=== PATIENT | male | born 1935 | race Caucasian/White ===

== ENCOUNTER 2018-11-06 21:18 | Day surgery (SDC) | payer MEDICARE, OTHER ==
[2018-11-06] MEDS ORDERED: Lidocaine 2% 100 MG/5 ML Syringe IVPUSH ONE (21:19)
[2018-11-06] MEDS ORDERED: Propofol 200 MG/20 ML SDV IV ONE (21:19)
[2018-11-06] MEDS ORDERED: Lactated Ringers 1,000 ML IV ONE (21:19)
--- NOTE | 2018-11-06 22:00 | HP ---
ADMISSION DATE: 11/06/2018 HISTORY OF PRESENT ILLNESS: This is an 83-year-old male. He is transferred here from [place] after sustaining a food bolus stuck in his esophagus. The patient states that he was eating supper approximately at 6:30. He ate some salad. This seemed to go down without difficulty. Then, he ate approximately 2 bites of well done ribs and a small onion ring. After that he was unable to swallow and since then he is not able to keep even his saliva down. He feels a generalized discomfort but no sharp pain in the abdomen. He has no respiratory difficulty from this, but despite observing this now for almost 3 hours, the symptoms persist. The patient states that prior to this episode, he has not been having difficulty with heartburn. He denies taking medication for acid reflux and he also states that he has not noticed any difficulty with swallowing, specifically denying any dysphagia or altering his eating at all because of difficulty swallowing. PAST MEDICAL HISTORY: Does include diagnosis of coronary artery disease. He has had an [place] during the 1970s. He has had 2 coronary artery bypass surgeries, the last one being approximately year 1999. He has been diagnosed with atrial fibrillation, but his only anticoagulant at this time is low-dose aspirin. He also is reported to carry a diagnosis of COPD. Generally, he says that he has felt well. He does remain physically active, able to do activities such as mowing the lawn without any unusual shortness of breath. He does, however. report that approximately 6 weeks ago, he was diagnosed with pneumonia and required antibiotics for this. ALLERGIES: He is allergic to metformin, penicillin, and sulfa. PHYSICAL EXAMINATION: VITAL SIGNS: Temperature is 97.7, pulse 52, blood pressure is 137/62, and weight is 180 pounds. GENERAL: The patient is an adult elderly male. He is in no acute distress. He does repeatedly have to spit his saliva out. NECK: Supple. No cervical masses. HEART: Irregular but no murmurs heard. LUNGS: Clear. ABDOMEN: Soft. No palpable mass. No distention. No hepatic or splenic enlargement. EXTREMITIES: Show no obvious deformity. IMPRESSION: Foreign body (food) lodged in the esophagus. PLAN: EGD for removal of esophageal foreign body. INFORMED CONSENT: I have discussed the proposed endoscopic procedure with the patient. Reviewed indications and risks such as but not limited to esophageal injury. He appears to understand and agrees to proceed. /[id number] NIKHIL/VANITA CURRY
--- NOTE | 2018-11-06 22:48 | PCM.OPNOTE ---
- General Post-Op/Procedure Note Date of Surgery/Procedure: 11/06/18 Operative Procedure(s): Esophagogastroscopy with removal of esophageal foreign body Findings: Large amount of food lodged in patient's esophagus and oropharynx Pre Op Diagnosis: Foreign body in esophagus Post-Op Diagnosis: Same Anesthesia Technique: MAC Primary Surgeon: Master Neely Pathology: none EBL in mLs: 0 Complications: None Condition: Good
--- NOTE | 2018-11-06 23:50 | OR ---
DATE OF OPERATION: 11/06/2018 SURGEON: Master Neely MD PREOPERATIVE DIAGNOSIS: Esophageal obstruction secondary to foreign body (food). POSTOPERATIVE DIAGNOSIS: Esophageal obstruction secondary to foreign body (food). OPERATION PERFORMED: Esophagogastroscopy with removal of esophageal foreign body. INDICATIONS FOR SURGERY: This 83-year-old male presented to the [facility] with symptoms of esophageal obstruction after eating a meal of ribs. Physical findings and symptoms were consistent with an obstructed esophagus secondary to this food bolus, and he is referred here for definitive care. FINDINGS: On upper endoscopy, the patient had a large amount of food which grossly was consistent with ribs, filling most of the esophagus and also a [id number] amount of food was located in the oropharynx. The vocal cords were clearly viewed and appeared to be maintained clear. No indication of any food or fluid passing into the trachea was noted. The patient did not have a definite stricture, although a hiatal hernia was noted. There was esophageal irritation noted after the foreign body had been removed, although no indication of esophageal injury was noted. PROCEDURE IN DETAIL: The patient was taken to the procedure room. He was placed in the left lateral decubitus position and given intravenous sedation. The gastroscope was carefully advanced through a mouth guard into the patient's mouth, and as it passed to the oropharynx under direct visualization, a large amount of food was noted in the patient's oropharynx. Carefully, with repeated passes of suctioning under direct visualization with the gastroscope, this large amount of food was able to be evacuated from the oropharynx until the oropharynx appeared clear. Again, no sign of food or fluid passing through the vocal cords which were easily visualized were noted. The gastroscope was then carefully advanced through the oral and hypopharynx into the upper esophagus. A large amount of food bolus was noted in the esophagus filling the majority of the esophageal cavity. Carefully the gastroscope was able to be advanced through and alongside the food bolus down to the GE junction and then with careful manipulation, the stomach was able to be entered safely. Using repeated passes of the gastroscope, the food bolus was able to gradually piece by piece be able to be advanced through the GE junction down into the gastric lumen. Multiple passes were required to accomplish this, and once the majority of the food had been pushed down into the stomach, the scope was withdrawn back for reexamination of the oropharynx and additional food was noted in the oropharynx at this time. Again, repeated passes of the gastroscope with suction was used to be able to evacuate this food from the oropharynx again preserving the vocal cords and not allowing any food or fluid to pass through them. Once the oropharynx had been again cleared, the scope was carefully advanced back into the esophagus where some additional food bolus was identified and again multiple passes of the gastroscope was used until all of the food bolus in the esophagus is pushed into the gastric lumen. After this had been accomplished, careful examination of the esophageal lining was carried out. Some inflammation and irritation from the procedure were noted, but no sign of any esophageal injury was identified. The scope was then slowly withdrawn back into the oropharynx, where additional small amount of food was able to be removed. At the completion of the procedure, all of the foreign body from the esophagus and oropharynx appeared to have been cleared. Oxygenation was good. No indication of any foreign material in the trachea was noted. The scope was removed. The patient was then taken from the operating room in satisfactory condition. ESTIMATED BLOOD LOSS: 0. COMPLICATIONS: None. PROGNOSIS: Good. /[id number] NIKHIL/VANITA
== END 2018-11-06 23:55 | disposition home or self-care (01) ==
LOC: FB.SDS 21:18
PROVIDERS: ATTEND Surgery
DX: T18.128A Food in esophagus causing other injury, initial encounter (principal); K44.9 Diaphragmatic hernia without obstruction or gangrene; I25.10 Atherosclerotic heart disease of native coronary artery without angina pectoris; I25.2 Old myocardial infarction; I48.91 Unspecified atrial fibrillation; J44.9 Chronic obstructive pulmonary disease, unspecified; Z88.0 Allergy status to penicillin; Z88.2 Allergy status to sulfonamides; Z88.8 Allergy status to other drugs, medicaments and biological substances; Z91.018 Allergy to other foods; Z95.1 Presence of aortocoronary bypass graft; Z87.891 Personal history of nicotine dependence; Z79.82 Long term (current) use of aspirin; Z79.899 Other long term (current) drug therapy
CPT/HCPCS: 00731-QZ; J2001; J2704; J7120